=== PATIENT | male | born 1940 | race Caucasian/White ===

== ENCOUNTER → 2017-10-06 | Outpatient (CLI) | payer OTHER ==
[2017-02-27 13:20] VITALS: BMI 16.8
[~2017-10-06] MED LIST: ACET500T68 PO; ASPI-1441 PO; ASPI-870 PO; ATOR20TA22 PO; CALC400T65 PO; CALCIUM 500+VI1 EACH PO; CEPH500T7 PO; CHOL200025 PO; CLO5 PO; CLON-298 PO; CLON-303 PO; CLOP75TA43 PO; CYA1000 PO; CYCL10TA29 PO; DIPH0.5D12 IM; DOCU-202 PO; FLU IM; LOR5 PO; METO-1 PO; METO-253 PO; METOPROLOL PO; MIRT-22 PO; MIRT-27 PO; MIRT7.5T2 PO; MULT-1 PO; MULT-27 PO; MULT1CAP41 PO; ONDA4TAB PO; PER PO; PNEU0.5D3 IM; POLY17PO21 PO; PRIM50TA42 PO; PROP40TA45 PO; SIMV-44 PO; SIMV-49 PO; SIMV-54 PO; VIT1CAPS49 PO; VITA-175 PO; VITE400 PO; [UNRECOGNIZED DRUG - OTHER]
[2017-10-06 09:56] LABS: PLATELET COUNT, AUTOMATED 262 K/uL (150-450)
== END ==
LOC: LAB 09:27
PROVIDERS: ATTEND Family Medicine
DX: I10 Essential (primary) hypertension (principal); R53.83 Other fatigue
CPT/HCPCS: 36415; 82040; 82247; 82310; 82374; 82435; 82565; 82947; 83970; 84075; 84132; 84155; 84295; 84443; 84450; 84460; 84520; 85025

== ENCOUNTER 2018-02-24 10:02 | Emergency (ER) | payer OTHER ==
[2017-02-27 13:20] VITALS: Wt 60.9 kg
[~2018-02-24 10:02] MED LIST changes: -CLON-298 PO; -CLON-303 PO; +CLON-304 PO; +CLON-331 PO
--- NOTE | 2018-02-24 10:29 | ER Report ---
History and Physical Time Seen By MD: 10:25 Hx. of Stated Complaint: PT REPORTS L LEG PAIN IN ALL 3 JOINTS- HIP, KNEE, ANKLE. NO KNOWN INJURY HPI/ROS CHIEF COMPLAINT: lef leg pain HISTORY OF PRESENT ILLNESS: Patient is a 77-year-old male who states that one to one and a half days of intermittent pain to the left lower extremity with pain seemingly in the posterior aspect of the left hip the left knee side of the left lower extremity and ankle. This seems positional it's worse with standing or if patient has been sitting for some period of time he notices the pain becomes more pronounced. He notes that changing position seems to improve symptoms. Injury. She denies any recent fever or chills. He denies any redness or swelling to either the leg or the joints of the affected extremity. has no prior history of similar episodes in the past. REVIEW OF SYSTEMS: Respiratory: No cough, no dyspnea. Cardiovascular: No chest pain, no palpitations. Gastrointestinal: No vomiting, no abdominal pain. Musculoskeletal: No back pain. Left lower extremity pain Allergies: Coded Allergies: latex (Verified Allergy, Intermediate, RASH, 02/24/18) Home Meds Active Scripts Polyethylene Glycol 3350 (POLYETHYLENE GLYCOL 3350) 17 Gm Powd.pack, 17 GM PO QDAY for constipation, #1 BOTTLE Prov:JOANA NAIR MD 05/10/17 Propranolol Hcl (PROPRANOLOL HCL) 40 Mg Tablet, 1 TAB PO BID for 90 Days, #180 TAB 4 Refills Prov:JOANA NAIR MD 05/05/17 Docusate Sodium (DOCUSATE SODIUM) 100 Mg Capsule, 100 MG PO BID for to prevent constipation, #60 CAPSULE Prov:GRAY SNYDER MD 03/09/17 Vitamin B Complex (B COMPLEX) 1 Each Tablet, 1 EACH PO DAILY, #30 TAB Prov:GRAY SNYDER MD 03/09/17 Cyanocobalamin (Vitamin B-12) (VITAMIN B-12) 1,000 Mcg Tablet, 1000 MCG PO QDAY, #30 TAB Prov:GRAY SNYDER MD 03/09/17 Reported Medications Acetaminophen (TYLENOL EXTRA STRENGTH) 500 Mg Tablet, 1 TAB PO BID, TAB 05/10/17 Calcium Carbonate (TUMS ULTRA) 400 Mg Tab.chew, 1 TAB PO QDAY, TAB.CHEW 07/10/15 Mu-Vits-Min Th/Lycopene/Lutein (CENTRUM SILVER TABLET) 1 Each Tablet, 1 TAB PO QDAY 07/10/15 Aspirin (Children's Aspirin) 81 Mg Tab.chew, 1 TAB PO DAILY, #100 TAB 4 Refills 07/04/14 Cholecalciferol (Vitamin D3) (VITAMIN D3) 2,000 Unit Capsule, 1 TAB PO QDAY, CAPSULE 12/28/13 Past Medical/Surgical History Past medical history for neuropathy, history of coronary artery disease and stenting, history of hyperlipidemia, history of alcoholism, history of coronary stenting 2003, history of basal cell cancer removal in 2011 Hx Smoking: Yes Smoking Status: Former Smoker, Light Tobacco Smoker Exposure to Second Hand Smoke?: No Hx Substance Use Disorder: No Hx Alcohol Use: Yes Constitutional Vital Sign - Last 24 Hours 02/24/18 02/24/18 02/24/18 02/24/18 10:02 10:02 10:06 10:17 Temp 98.8 Pulse 70 ??? 71 Resp 16 B/P (MAP) 169/100 169/100 (123) Pulse Ox 98 95 O2 Delivery Room Air 02/24/18 02/24/18 02/24/18 10:30 10:32 10:47 Pulse 72 69 B/P (MAP) 155/110 (125) Pulse Ox 94 93 Physical Exam General/Constitutional: Patient is awake, alert, nontoxic and in no acute respiratory distress. Head: Normocephalic and atraumatic. Eyes: Conjunctival clear,Sclera are clear and anicteric. Neck: Supple, no adenopathy. Cardiovascular: Heart is regular rate and rhythm without audible murmurs, rubs or gallops. Pulmonary: Lungs are clear to auscultation bilaterally. There are no wheezes, rales, or rhonchi. Chest rise is symmetrical Abdomen: Soft, nontender, no guarding or peritoneal signs. Extremities: No gross deformities, No peripheral cyanosis. Able to move all 4 extremities. Normal dorsalis pedis and posterior tibial pulses bilaterally Neuro: Alert and oriented X3, Skin: No rashes, skin is warm dry and well perfused. Possibly of hair on the left lower extremity Medical Decision Making EKG/Imaging Imaging Spoke with the prosthetic technician noted some widespread atherosclerotic lesions throughout the arterial system without evidence of clot or obstruction. ED Course/Re-evaluation ED Course 02/24/2018 10:43:04 am she currently symptom-free at this time. History and physical exam raises suspicion of possible arterial claudication. Plan at this time will be arterial Doppler of the left lower extremity. Decision to Disposition Date: Feb 24, 2018 Decision to Disposition Time: 12:16 Depart Departure Latest Vital Signs Vital Signs Date Time Temp Pulse Resp B/P (MAP) Pulse Ox O2 Delivery O2 Flow Rate FiO2 02/24/18 10:47 69 93 02/24/18 10:30 155/110 (125) 02/24/18 10:02 98.8 16 Room Air Impression: Primary Impression: Claudication in peripheral vascular disease Condition: Improved Disposition: HOME OR SELF-CARE Referrals: JOANA NAIR MD (PCP) Patient Instructions: Peripheral Artery Disease (ED) Additional Instructions: You should schedule a follow-up appointment with your primary care provider in the next month or so for reevaluation and perhaps further testing and/or referral to a vascular surgeon. ERICK NUNEZ MD Feb 24, 2018 10:29
[2018-02-24 12:00] VITALS: BP 138/91
--- NOTE | 2018-02-24 13:14 | RADIOLOGY IMAGING REPORT ---
FACILITY: [facility] PATIENT NAME: Bowen Vides : 1940 MR: [id number] V: [id number] EXAM DATE: ORDERING PHYSICIAN: ERICK NUNEZ TECHNOLOGIST: Location: [facility] - [place] Patient: Bowen Vides : 1940 Visit/Account:[id number] Date of Sevice: 02/24/2018 ARTERIAL LOWER EXT LEFT INDICATION: Left leg pain. COMPARISON: None available. FINDINGS: Arterial ultrasound of the left lower extremity with Carr scale, color Doppler, and spectral Doppler evaluation. Waveforms: Biphasic. Common femoral artery: Mild plaque without stenosis. Peak systolic velocity of 87.2 cm/s. Superficial femoral artery: No significant stenosis. Peak systolic velocity of 89.6 cm/s. Popliteal artery: Mild plaque with no significant stenosis. Peak systolic velocity of 56.6 cm/s. Peroneal artery: Peak systolic velocity of 73.9 cm/s. Posterior tibial artery: Peak systolic velocity is 71.5 cm/s. Anterior tibial artery: Peak systolic velocity of 47.5 cm/s. Dorsalis pedis artery: Peak systolic velocity of 14.5 cm/s. IMPRESSION: 1. Mild plaque in the left common femoral and popliteal arteries with no significant stenosis. 2. Biphasic waveforms. Report Dictated By: Petar Oropeza MD at 02/24/2018 12:26 PM Report E-Signed By: Petar Oropeza MD at 02/24/2018 12:48 PM WSN:[id number]
== END 2018-02-24 12:20 | disposition home or self-care (01) ==
LOC: ER 10:13
DX: I73.9 Peripheral vascular disease, unspecified (principal)
CPT/HCPCS: 99284

== ENCOUNTER → 2018-07-27 | Outpatient (CLI) | payer OTHER ==
[2017-02-27 13:20] VITALS: BMI 16.8
[~2018-07-27] MED LIST changes: -CLON-304 PO; +CLON-333 PO; +FLU180SY11 IM; -MIRT-27 PO; +MIRT15TA11 PO; +POLY17PO11 PO; -POLY17PO21 PO
[2018-07-27 10:13] LABS: PLATELET COUNT, AUTOMATED 265 K/uL (150-450)
== END ==
LOC: LAB 09:46
PROVIDERS: ATTEND Family Medicine
DX: I10 Essential (primary) hypertension (principal)
CPT/HCPCS: 36415; 82040; 82247; 82310; 82374; 82435; 82565; 82947; 84075; 84132; 84155; 84295; 84450; 84460; 84520; 85025

== ENCOUNTER 2018-09-29 02:07 | Day surgery (SDC) | payer OTHER ==
[2017-02-27 13:20] VITALS: Ht 177.8 cm; Wt 64.4 kg
[~2018-09-29] VITALS: Ht 177.8 cm; Wt 64.4 kg
[~2018-09-29 02:07] MED LIST changes: +ASPI-1471 PO; -DIPH0.5D12 IM; +DIPH0.5S2 IM
[2018-09-29] MEDS ORDERED: LIDOCAINE/SOD BICARB 8.4% SYR ID ONE (08:00)
[2018-09-29 15:02] VITALS: BP 150/96
[2018-09-29] MEDS ORDERED: PROPOFOL EMUL(*) 10MG/ML 20 ML 20 ML ONE (15:26)
[2018-09-29] MEDS ORDERED: LIDOCAINE MPF 1% 5 ML VIAL ONE (15:26)
[2018-09-29] MEDS ORDERED: OPHTHALMIC PROCEDURE 2 OS PRN ×2 (16:00)
[2018-09-29] MEDS ORDERED: acetaZOLAMIDE 500 MG CAPCR PO ONE (16:00)
[2018-09-29] MEDS ORDERED: NORMOSOL R SOLN(*) 1000 ML BAG 1,000 ML IV PRN (16:00)
[2018-09-29] MEDS ORDERED: OPHTHALMIC PROCEDURE 1 OS PRN (16:00)
[2018-09-29] MEDS ORDERED: MIDAZOLAM 2 MG/2 ML VIAL ONE (16:55)
[2018-09-29 17:23] VITALS: BP 144/88
--- NOTE | 2018-09-29 20:27 | FOSTER LEFT EYE CATARACT ---
EVENT DATE: September 29, 2018 SURGEON: Terry Chavez MD ANESTHESIOLOGIST: JONE RIVERA MD ANESTHESIA: MAC PREOPERATIVE DIAGNOSIS Hypermature cataract, left eye. POSTOPERATIVE DIAGNOSIS Hypermature cataract, left eye. PROCEDURE Phacoemulsification of cataractous lens with implantation of an intraocular lens, left eye. DESCRIPTION OF PROCEDURE The risks, benefits, and alternatives were carefully discussed with the patient, and preoperative consent was obtained. The patient was brought to the operating room after receiving topical anesthetic. The patient was prepped and draped using sterile technique in the usual manner. A stab incision was made, and the chamber was inflated with preservative-free lidocaine. DuoVisc was injected to inflate the chamber. A 2.2 mm blade was used to enter the anterior chamber. Utrata forceps were used to tear a circular capsulorrhexis. BSS was used to hydrodissect the nucleus. Phaco tip was introduced, and the nucleus was chopped into four quadrants. Each quadrant was removed. The I/A tip was used to remove the cortex. The bag was inflated with ProVisc. The intraocular lens was injected into the capsular bag. The I/A tip was used to remove the ProVisc. The wound was found to be watertight. Vigamox, Nevanac, and Maxitrol ointment were placed in the patient's eye. The patient's eye was patched, and the patient was taken to the recovery room in stable condition. The patient was examined in the recovery room and found to be stable prior to release from the hospital. Trypan Blue was injected prior to the viscoelastic to stain the anterior capsule. LAYNE
== END 2018-09-29 17:52 | disposition home or self-care (01) ==
LOC: OR 02:07
PROVIDERS: ATTEND Ophthalmology
DX: H25.22 Age-related cataract, morgagnian type, left eye (principal); H25.11 Age-related nuclear cataract, right eye
CPT/HCPCS: 66984; J2001; J2250; J2704; V2632